=== PATIENT | male | born 1995 | race African-American/Black ===

== ENCOUNTER 2018-03-29 15:48 | Emergency (ER) | payer OTHER, SELFPAY ==
[2018-03-29] MEDS ORDERED: Bacitracin Zinc 1 Packet ONE (16:23)
== END 2018-03-29 16:31 | disposition home or self-care (01) ==
LOC: SCSER 15:48
DX: S61.214A Laceration without foreign body of right ring finger without damage to nail, initial encounter (principal); F17.210 Nicotine dependence, cigarettes, uncomplicated; W25.XXXA Contact with sharp glass, initial encounter
CPT/HCPCS: 12001

== ENCOUNTER 2018-05-07 15:45 | Emergency (ER) | payer SELFPAY ==
[2018-05-07] MEDS ORDERED: levETIRAcetam 500 MG/100 ML PREMIX BAG ONE (16:03)
[2018-05-07] MEDS ORDERED: levETIRAcetam 500 MG TAB PO SCH (16:15)
== END 2018-05-07 16:16 | disposition home or self-care (01) ==
LOC: ERS 15:45
DX: G40.909 Epilepsy, unspecified, not intractable, without status epilepticus (principal); Z91.14 Patient's other noncompliance with medication regimen; B20 Human immunodeficiency virus [HIV] disease; F41.9 Anxiety disorder, unspecified; F31.9 Bipolar disorder, unspecified; F17.210 Nicotine dependence, cigarettes, uncomplicated; Z79.899 Other long term (current) drug therapy
CPT/HCPCS: 99284; J1953